=== PATIENT | female | born 1945 | race Caucasian/White ===

== ENCOUNTER 2017-08-01 08:28 | Day surgery (SDC) | payer MEDICARE ==
[~2017-08-01 08:28] MED LIST: Acetaminophen TAB* 325 MG PO PRN; Buffered Lidocaine 0.9% SYRIN* 5 ML/SYR SYRINGE INTRADERM ONE
[2017-08-01] MEDS ORDERED: Midazolam* 1 MG/ML 2 ML VIAL (2 MG) ONE ×2 (10:12→10:24)
[2017-08-01] MEDS ORDERED: Neomycin/Polymy/Dex OPTH.SUSP* MAXITROL 0.1% 5 ML ONE (10:38)
[2017-08-01] MEDS ORDERED: Cyclopentolate 1% OPTH.SOL* 2 ML BTL ONE (10:38)
[2017-08-01] MEDS ORDERED: acetaZOLAMIDE TAB* 250 MG ONE (10:38)
[2017-08-01] MEDS ORDERED: Lidocaine 2% EPI 1:200000 MPF* 20 ML VIAL ONE (10:38)
[2017-08-01] MEDS ORDERED: Phenylephrine 2.5% OPTH.SOL* 2 ML BTL ONE (10:38)
[2017-08-01] MEDS ORDERED: Ketorolac 0.5% OPHTH (NF) 0.5 % 5 ML BTL ONE (10:38)
[2017-08-01] MEDS ORDERED: Proparacaine 0.5% OPHTH.SOL* 15 ML BTL ONE (10:38)
[2017-08-01] MEDS ORDERED: Povidone Iodine 5% OPTH* 30 ML BTL ONE (10:38)
[2017-08-01] MEDS ORDERED: Lidocaine 1% MPF* 2 ML VIAL ONE (10:38)
[2017-08-01 11:02] VITALS: BP 139/64
--- NOTE | 2017-08-01 11:40 | OP ---
DATE OF OPERATION: 08/01/2017 - [facility] DATE OF : 1945. SURGEON: Jono Shafer M.D. PREOPERATIVE DIAGNOSIS: Cataract right eye. POSTOPERATIVE DIAGNOSIS: Cataract right eye. OPERATIVE PROCEDURE: Extracapsular cataract extraction with intraocular lens implant right eye. DESCRIPTION OF PROCEDURE: The patient was brought to the operating room after being given 1/2% Alcaine with epinephrine drops in the preoperative area. The eye was prepped and draped in the usual sterile fashion. Sterile drape and eyelid speculum were placed. Again, topical 1/2% Alcaine with epinephrine was given. A paracentesis incision was made at the 9 o'clock position with the No.75 blade. Clear cornea incision 2.2 x 2.2-mm was created at the 12 o'clock position starting at the anterior limbus using the 2.2-mm keratome. The anterior chamber was irrigated with 0.4 mL of 1% non-preservative intracameral lidocaine and filled with DisCoVisc. A capsulorrhexis was completed using the cystotome and the Utrata forceps. Hydrodissection was performed with balanced salt solution. The lens nucleus was removed with the Phacoemulsification handpiece without incident. Cortex was removed with the irrigation-aspiration handpiece. The capsular bag was re-inflated using DisCoVisc and an SN60WF 15.5 implant was inserted with the shooter. The irrigation-aspiration handpiece was used to remove all residual DisCoVisc. The eye was refilled with balanced salt solution and the wound checked and found to be watertight. Topical Maxitrol drops were given. [id number]/[facility] #: [id number] [facility]
== END 2017-08-01 10:56 | disposition home or self-care (01) ==
LOC: OREAST 08:28
PROVIDERS: ATTEND Specialist
DX: H26.9 Unspecified cataract (principal); Z88.0 Allergy status to penicillin; Z91.09 Other allergy status, other than to drugs and biological substances
CPT/HCPCS: A9270-GY; J2250; V2632

== ENCOUNTER 2017-08-08 07:27 | Day surgery (SDC) | payer MEDICARE ==
[2017-08-08] MEDS ORDERED: Midazolam* 1 MG/ML 2 ML VIAL (2 MG) ONE ×2 (08:32→09:06)
[2017-08-08] MEDS ORDERED: fentaNYL* 50 MCG/ML 2 ML VIAL (100 MCG VIAL) ONE (08:32)
[2017-08-08 09:56] VITALS: BP 117/61
[2017-08-08] MEDS ORDERED: Proparacaine 0.5% OPHTH.SOL* 15 ML BTL ONE (11:51)
[2017-08-08] MEDS ORDERED: Phenylephrine 2.5% OPTH.SOL* 2 ML BTL ONE (11:51)
[2017-08-08] MEDS ORDERED: Cyclopentolate 1% OPTH.SOL* 2 ML BTL ONE (11:51)
[2017-08-08] MEDS ORDERED: Lidocaine 1% MPF* 2 ML VIAL ONE (11:51)
[2017-08-08] MEDS ORDERED: Povidone Iodine 5% OPTH* 30 ML BTL ONE (11:51)
[2017-08-08] MEDS ORDERED: Ketorolac 0.5% OPHTH (NF) 0.5 % 5 ML BTL ONE (11:51)
[2017-08-08] MEDS ORDERED: acetaZOLAMIDE TAB* 250 MG ONE (11:51)
[2017-08-08] MEDS ORDERED: Neomycin/Polymy/Dex OPTH.SUSP* MAXITROL 0.1% 5 ML ONE (11:51)
[2017-08-08] MEDS ORDERED: Lidocaine 2% EPI 1:200000 MPF* 20 ML VIAL ONE (11:51)
--- NOTE | 2017-08-08 13:37 | OP ---
DATE OF OPERATION: 08/08/17 [facility] DATE OF : [birth year] SURGEON: Joon Shafer M.D. PREOPERATIVE DIAGNOSIS: Cataract, left eye. POSTOPERATIVE DIAGNOSIS: Cataract, left eye. OPERATIVE PROCEDURE: Extracapsular cataract extraction with intraocular lens implant left eye. DESCRIPTION OF PROCEDURE: The patient was brought to the operating room after being given 1/2% Alcaine with epinephrine drops in the preoperative area. The eye was prepped and draped in the usual sterile fashion. Sterile drape and eyelid speculum were placed. Again, topical 1/2% Alcaine with epinephrine was given. A paracentesis incision was made at the 3 o'clock position with the No.75 blade. Clear cornea incision 2.2 x 2.2-mm was created at the 6 o'clock position starting at the anterior limbus using the 2.2-mm keratome. The anterior chamber was irrigated with 0.4 mL of 1% non-preservative intracameral lidocaine and filled with DisCoVisc. A capsulorrhexis was completed using the cystotome and the Utrata forceps. Hydrodissection was performed with balanced salt solution. The lens nucleus was removed with the Phacoemulsification handpiece without incident. Cortex was removed with the irrigation-aspiration handpiece. The capsular bag was re-inflated using DisCoVisc and an [id number] 16 implant was inserted with the shooter. The irrigation-aspiration handpiece was used to remove all residual DisCoVisc. The eye was refilled with balanced salt solution and the wound checked and found to be watertight. Topical Maxitrol drops were given. [id number]/[facility] #: [id number] [facility]
== END 2017-08-08 09:52 | disposition home or self-care (01) ==
LOC: OREAST 07:27
PROVIDERS: ATTEND Specialist
DX: H25.12 Age-related nuclear cataract, left eye (principal); H43.813 Vitreous degeneration, bilateral; I10 Essential (primary) hypertension; K21.9 Gastro-esophageal reflux disease without esophagitis
CPT/HCPCS: A9270-GY; J2250; J3010; V2632

== ENCOUNTER 2017-08-22 06:36 | Day surgery (SDC) | payer MEDICARE ==
[2017-08-22] MEDS ORDERED: Proparacaine 0.5% OPHTH.SOL* 15 ML BTL ONE (06:53)
[2017-08-22] MEDS ORDERED: Midazolam* 1 MG/ML 2 ML VIAL (2 MG) ONE ×2 (07:47→08:54)
[2017-08-22 09:41] VITALS: BP 148/60
--- NOTE | 2017-08-22 13:17 | OP ---
OPERATIVE NOTE: DATE OF OPERATION: 08/22/17 DATE OF : [birth year] SURGEON: Jono Shafer M.D. ANESTHESIA: Local with MAC. 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 OPERATIVE PROCEDURE: Removal of nuclear chip in the right eye. COMPLICATIONS: None. PROCEDURE: The patient was prepped and draped in the usual sterile fashion. Lid speculum placed. T he paracentesis and clear corneal incisions were reopened with the DisCoVisc cannula. The nuclear ch ip had been identified with direct visualization prior to that. The irrigation aspiration handpiece was used to grasp the nuclear chip and that it was aspirated with assistance of a second instrument. The anterior chamber was reinspected and found to be completely clear of any residual nuclear fragmen ts. The eye was refilled with balanced salt solution. Maxitrol drops were given. [id number]/[facility] #: [id number]
== END 2017-08-22 09:23 | disposition home or self-care (01) ==
LOC: OREAST 06:36
PROVIDERS: ATTEND Specialist
DX: Z02.89 Encounter for other administrative examinations (principal); T15.01XA Foreign body in cornea, right eye, initial encounter; H35.371 Puckering of macula, right eye; H25.20 Age-related cataract, morgagnian type, unspecified eye; I10 Essential (primary) hypertension; E78.00 Pure hypercholesterolemia, unspecified; Z88.0 Allergy status to penicillin; Z88.8 Allergy status to other drugs, medicaments and biological substances; Z96.1 Presence of intraocular lens; Z18.89 Other specified retained foreign body fragments; X58.XXXA Exposure to other specified factors, initial encounter
CPT/HCPCS: A9270-GY; J2250